=== PATIENT | male | born 1990 | race Caucasian/White ===

== ENCOUNTER 2021-04-07 06:25 | Emergency (ER) | payer OTHER ==
[~2021-04-07 06:25] MED LIST: IMITREX50 MG PO; ZOFRAN4 MG PO
[2021-04-07] MEDS ORDERED: NORCO 5-325 TA1 EACH PO (09:45)
== END 2021-04-07 09:59 | disposition home or self-care (01) ==
LOC: FER 06:25
DX: S22.31XA Fracture of one rib, right side, initial encounter for closed fracture (principal); S01.111A Laceration without foreign body of right eyelid and periocular area, initial encounter; S63.502A Unspecified sprain of left wrist, initial encounter; S30.1XXA Contusion of abdominal wall, initial encounter; Z88.6 Allergy status to analgesic agent; Z23 Encounter for immunization; Y92.89 Other specified places as the place of occurrence of the external cause; Y99.0 Civilian activity done for income or pay; Z95.5 Presence of coronary angioplasty implant and graft; W17.89XA Other fall from one level to another, initial encounter
CPT/HCPCS: 70450; 70486; 73110; 90471; 90715

== ENCOUNTER 2022-05-19 04:36 | Emergency (ER) | payer OTHER ==
[~2022-05-19 04:36] MED LIST changes: +NORCO 5-325 TA1 EACH PO
== END 2022-05-19 08:36 | disposition home or self-care (01) ==
LOC: FER 04:36
DX: R51.9 Headache, unspecified (principal); Z88.6 Allergy status to analgesic agent; Z88.8 Allergy status to other drugs, medicaments and biological substances; Z28.311 Partially vaccinated for COVID-19
CPT/HCPCS: 70450; J0780; J1200; J1885; J7030